=== PATIENT | male | born 1965 | race Caucasian/White ===

== ENCOUNTER → 2017-12-28 | Outpatient (CLI) | payer BC ==
[~2017-12-28] MED LIST: ASPIRIN ADULT L81 M1 PO; COLACE100 MG PO; LASIX20 MG PO; METOPROLOL SUCC25 M2 PO; PEPCID20 MG PO; PLAVIX75 M1 PO; POTASSIUM CHLO10 MEQ PO; ROXICODONE5 MG PO; TRILIPIX45 MG PO; ZOCOR40 MG PO
[2017-12-28 15:53] LABS: MEAN CORPUSCULAR HGB 31.3 pg (27.0-31.0); MEAN CORPUSCULAR HGB CONC 32.6 g/dl (33.0-37.0); MEAN PLATELET VOLUME 10.8 fl (9.6-12.3); RED BLOOD COUNT 4.79 10*6/uL (4.50-5.90)
[2017-12-28 16:24] LABS: ALBUMIN 4.3 gm/dl (3.1-4.5); ALKALINE PHOSPHATASE 44 U/L (45-117); BUN 23 mg/dl (7-24); CHLORIDE 112 mmol/L (98-107); CHOLESTEROL 192 mg/dL (<200); CREATININE 1.35 mg/dL (0.70-1.30); HDL CHOLESTEROL 65 mg/dl (40-60); LDL CHOLESTEROL 112 mg/dL (9-159); SGOT/AST 10 IU/L (3-35); SGPT/ALT 21 U/L (12-78); SODIUM 138 mmol/L (136-145); TOTAL PROTEIN 7.6 gm/dL (6.4-8.2); TRIGLYCERIDES 73 mg/dl (<150); VLDL CHOLESTEROL 15 mg/dL (6-40)
== END | disposition home or self-care (01) ==
LOC: LAB 14:46
PROVIDERS: Physician Assistant
DX: Z12.5 Encounter for screening for malignant neoplasm of prostate (principal); M16.12 Unilateral primary osteoarthritis, left hip; I10 Essential (primary) hypertension; I25.810 Atherosclerosis of coronary artery bypass graft(s) without angina pectoris; E78.2 Mixed hyperlipidemia; E66.09 Other obesity due to excess calories; Z68.35 Body mass index [BMI] 35.0-35.9, adult; K59.1 Functional diarrhea

== ENCOUNTER 2018-04-05 09:17 | Inpatient (IN) | payer BC ==
[~2018-04-05] VITALS: Ht 177.8 cm; Wt 112.7 kg
[2018-04-05] VITALS (9 sets, daily range): BP systolic 108–126; BP diastolic 58–82
--- NOTE | ~2018-04-05 | PR ---
[place], [place] PROGRESS NOTE NAME: TRACEY BANEGAS UNIT #: [id number] ROOM: 408 DOCTOR: LANG IGNACIO MD BIRTHDATE: [birth year] DOS: 04/07/2018 SUBJECTIVE: The patient is doing quite well from the cardiac point of view. Complains of still has some back pain and denies any chest discomfort, no shortness of breath. He has ruled out for myocardial infarction did a heart catheterization last year, she had one of the grafts was occluded. REVIEW OF SYSTEMS: A 6-8 systems reviewed except for the back pain. No chest pain, no shortness of breath. No syncope or no GI or issues. OBJECTIVE: GENERAL: The patient is alert, awake, oriented. HEENT: Unremarkable. NECK: Supple, no JVD. LUNGS: Clear. HEART: Sounds are regular. ABDOMEN: Soft, nontender. NEUROLOGIC: Stable. The patient was seen by Dr. Hunt yesterday. LABORATORY DATA: Sodium 140, potassium 3.6. Electrolytes are normal. Hemoglobin and hematocrit within normal limits 13.4 and 41. IMPRESSION: Atypical chest discomfort, known history of coronary artery, history of bypass surgery. RECOMMENDATIONS: Agree with the present management schedule a stress test as an outpatient. The patient is a prediabetic. Last heart catheterization 1 year ago and I will follow up. LANG IGNACIO MD CM:PNTRANS [id number] LANG IGNACIO MD 04/07/18 1048 interface
--- NOTE | ~2018-04-05 | EKG ---
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
--- NOTE | ~2018-04-05 | EKG ---
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
--- NOTE | ~2018-04-05 | CON ---
[place], [place] REPORT OF CONSULTATION NAME: TRACEY BANEGAS UNIT #: [id number] ROOM: 408 DOCTOR: BERTHA LOCKETT MD BIRTHDATE: [birth year] DOS: 04/06/[address] Thomas. HISTORY OF PRESENT ILLNESS: This is a 53-year-old -[place] gentleman with a history of hyperlipidemia, coronary artery disease, and 3-vessel CABG was done 2 years ago at [facility] following an acute myocardial infarction, which was attended to by Dr. Thomas. He has GERD. He tells me he does not have hypertension; however, the resident has hypertension as one of his diagnoses. He has mild obesity, but he has never had a stroke, heart failure, COPD, cancer, kidney problem. He never smoked, does not use alcoholic beverages. Both parents had coronary artery disease at a younger age. 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 He woke up around 4:30 in the morning with pain over the left anterior ribcage, mainly under the ribs that went laterally and down into the abdomen, it was quite severe and sharp. It eventually resolved. There was no accompanying nausea, any cramps in the belly, did not have any blood in the stools or diarrhea or constipation. He is very active and did not have any chest pain, jaw discomfort or arm discomfort. He has not had any palpitation, PND, orthopnea or swelling of the lower extremities. HOME MEDICATIONS: Include aspirin, clopidogrel, metoprolol 25 b.i.d., ranolazine 500 mg b.i.d., simvastatin 40 daily, topiramate 100 mg daily and Colace 100 mg daily. PHYSICAL EXAMINATION: GENERAL: Reveals a patient who is moderately overweight, but very pleasant, healthy looking, alert, oriented. There is no anemia, thyromegaly, finger clubbing. He is not cyanotic, not jaundiced. VITAL SIGNS: Pulse is 64 and regular, blood pressure 109/68. NECK: Normal JVP. AJR is negative. There is no carotid bruit. HEART: There is no cardiomegaly. No murmurs were present. EXTREMITIES: He has excellent pedal pulses and no edema in lower extremities. RESPIRATORY: Clear to percussion and auscultation. There was no chest wall tenderness. ABDOMEN: Bowel sounds are normal. No bruit was present. No organomegaly was present. Spleen was not palpable, and no guarding or rigidity was noted. LABORATORY DATA: An ECG showed normal sinus rhythm with right bundle branch block. Troponin I levels are normal. IMPRESSION: This patient had acute right upper quadrant pain and does not have any cardiac issues at this time. After GI workup, he can be discharged as far as heart is concerned. [place], [place] REPORT OF CONSULTATION NAME: TRACEY BANEGAS UNIT #: [id number] ROOM: 408 DOCTOR: BERTHA LOCKETT MD BIRTHDATE: [birth year] I thank you on behalf of Dr. Thomas for this consult. BERTHA LOCKETT MD CM:CONSTR:REPORT OF CONSULTATION 0816 04/25/18 1005 interface
--- NOTE | ~2018-04-05 | EKG ---
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
[2018-04-05] MEDS ORDERED: PAROXETINE HCL10 MG PO (09:26)
[2018-04-05] MEDS ORDERED: TOPIRAMATE100 M2 PO (09:26)
[2018-04-05 09:54] LABS: BASO % 0.1 % (0.0-1.0); EOS % 0.2 % (1.0-4.0); HEMATOCRIT 42.8 % (42.0-52.0); HEMOGLOBIN 14.3 g/dl (14.0-18.0); LYMPH # 0.8 10*3/uL (1.3-4.4); LYMPH % 9.5 % (27.0-41.0); MEAN CELL VOLUME 95.5 fl (80.0-94.0); MEAN CORPUSCULAR HGB 31.9 pg (27.0-31.0); MEAN CORPUSCULAR HGB CONC 33.4 g/dl (33.0-37.0); MONO # 0.4 10*3/uL (0.1-1.0); MONO % 4.5 % (3.0-9.0); NEUT # 6.8 10*3/uL (2.3-7.9); PLATELET COUNT AUTOMATED 232 10*3/uL (130-400); RED BLOOD COUNT 4.48 10*6/uL (4.50-5.90); RED CELL DISTRI WIDTH 12.9 % (0-14.5)
[2018-04-05 10:03] LABS: ACT PARTIAL THROMBO TIME 22.7 SECONDS (20.8-31.5)
[2018-04-05 10:10] LABS: ALBUMIN 3.7 gm/dl (3.1-4.5); ALKALINE PHOSPHATASE 39 U/L (45-117); BUN 21 mg/dl (7-24); CHLORIDE 108 mmol/L (98-107); CREATININE 1.35 mg/dL (0.70-1.30); LIPASE 114 U/L (73-393); POTASSIUM 3.7 mmol/L (3.5-5.1); SGOT/AST 14 IU/L (3-35); SGPT/ALT 22 U/L (12-78); SODIUM 136 mmol/L (136-145); TOTAL PROTEIN 6.9 gm/dL (6.4-8.2)
[2018-04-05 10:11] LABS: TROPONIN I < 0.015 ng/ml (<0.045)
[2018-04-05 10:38] LABS: BILIRUBIN NEGATIVE (NEGATIVE); BLOOD NEGATIVE (NEGATIVE); CLARITY CLOUDY (CLEAR); COLOR YELLOW (YELLOW); GLUCOSE NEGATIVE (NEGATIVE); KETONE NEGATIVE (NEGATIVE); LEUKO ESTERASE NEGATIVE (NEGATIVE); NITRITE NEGATIVE (NEGATIVE); PH 7.5 (5.0-9.0); UROBILINOGEN 0.2 E.U./dl (0.2-1.0)
[2018-04-05 10:56] LABS: BACTERIA 2+; EPITHELIAL CELLS 0-2; WBC 0-2 wbc/hpf (0-5)
--- NOTE | 2018-04-05 12:39 | NUR ---
PT DENIES ANY NAUSEA AT THIS TIME, ZOFRAN EFFECTIVE.
--- NOTE | 2018-04-05 14:00 | NUR ---
PT DENIES ANY PAIN AT THIS TIME MORPHINE EFFECTIVE.
--- NOTE | 2018-04-05 14:30 | NUR ---
A 53, admitted to , under the services of PADMA Liu DO with a diagnosis of CHEST PAIN. Chief complaint is LEFT UPPER ABD PAIN . Patient arrived via ambulatory from ER. Monitor applied. Initial assessment completed. Vital signs taken and recorded. PADMA LIU DO notified of admission to the unit. Orders received. See assessment for past medical history, medications and allergies. Patient and/or family oriented to unit. [facility]. Clothing/patient valuable form completed. RAUL DEE
--- NOTE | 2018-04-05 14:52 | NUR ---
Dr. Thomas was notified of consult.
--- NOTE | 2018-04-05 15:49 | NUR ---
NORCO GIVEN FOR C/O PAIN TO LEFT ABD OF 09/18. WILL CONT TO MONITOR. CALL LIGHT IN REACH.
--- NOTE | 2018-04-05 16:50 | NUR ---
PT STATES PAIN DECREASED TO LEFT ABD TO 3/10. WILL CONT TO MONITOR. CALL LIGHT IN REACH
--- NOTE | 2018-04-05 21:24 | NUR ---
PT GIVEN NORCO FOR C/O ABDOMINAL PAIN. WILL MONITOR FOR EFFECTIVENESS. CALL LIGHT IN REACH.
--- NOTE | 2018-04-05 21:45 | NUR ---
SPOKE WITH DR ARIZA REGARDING PT MED REC BEING UPDATED AND THAT MEDICATIONS NEED CONTINUED. PHYSICIAN STATES THAT HE WILL LOOK AT IT.
[2018-04-05] MEDS ORDERED: RANEXA500 M1 PO (22:03)
--- NOTE | 2018-04-05 22:29 | NUR ---
PT STATES THAT NORCO IS NOT EFFECTIVE AT THIS TIME FOR ABDOMINAL PAIN. MORPHINE GIVEN VIA IV. TOLERATED WELL BY PT. WILL MONITOR FOR EFFECTIVENESS. CALL LIGHT IN REACH.
--- NOTE | 2018-04-05 23:29 | NUR ---
PT STATES THAT MORPHINE IS EFFECTIVE AT THIS TIME AND HAS NO FURTHER COMPLAINTS.
[2018-04-06] VITALS: BP 109/68
--- NOTE | 2018-04-06 05:54 | NUR ---
CHECKED IN ON PATIENT AND HE STATES THAT HIS PAIN IS A 3 AT THIS TIME. PT OFFERED PAIN MEDICATION AND PT REFUSED AT THIS TIME. PT STATES HE WILL LET NURSE KNOW IF PAIN WORSENS. CALL LIGHT IN REACH.
[2018-04-06 06:05] LABS: BASO % 0.1 % (0.0-1.0); EOS # 0.1 10*3/uL (0.0-0.4); EOS % 1.1 % (1.0-4.0); HEMOGLOBIN 13.4 g/dl (14.0-18.0); LYMPH # 1.3 10*3/uL (1.3-4.4); LYMPH % 15.8 % (27.0-41.0); MEAN CELL VOLUME 97.2 fl (80.0-94.0); MEAN CORPUSCULAR HGB 31.8 pg (27.0-31.0); MEAN CORPUSCULAR HGB CONC 32.7 g/dl (33.0-37.0); MEAN PLATELET VOLUME 10.7 fl (9.6-12.3); MONO # 0.8 10*3/uL (0.1-1.0); MONO % 10.6 % (3.0-9.0); NEUT # 5.7 10*3/uL (2.3-7.9); PLATELET COUNT AUTOMATED 190 10*3/uL (130-400); RED BLOOD COUNT 4.22 10*6/uL (4.50-5.90); RED CELL DISTRI WIDTH 13.1 % (0-14.5); WHITE BLOOD COUNT 7.9 10*3/uL (4.8-10.8)
[2018-04-06 06:37] LABS: ALBUMIN 3.3 gm/dl (3.1-4.5); BUN 18 mg/dl (7-24); CHLORIDE 113 mmol/L (98-107); CREATININE 1.24 mg/dL (0.70-1.30); PHOSPHOROUS 2.5 mg/dL (2.5-4.9); POTASSIUM 3.6 mmol/L (3.5-5.1); SGOT/AST 20 IU/L (3-35); SGPT/ALT 19 U/L (12-78); SODIUM 140 mmol/L (136-145); TOTAL PROTEIN 6.4 gm/dL (6.4-8.2)
[2018-04-06 06:45] LABS: ALKALINE PHOSPHATASE 38 U/L (45-117)
--- NOTE | 2018-04-06 07:52 | NUR ---
IN BED AWAKE ALERT AND ORIENTED X3, C/O LEFT SIDE/BACK PAIN OF 3/10. WILL CONT TO MONITOR. CALL LIGHT IN REACH. SEE ASSESS.
[2018-04-06 08:00] VITALS: BP 108/50
--- NOTE | 2018-04-06 09:00 | NUR ---
[employer] Specialist in to talk to patient. Patient states lives at home with . There are few steps in the home. Physician: neelam garcia Pharmacy: [facility] Home health services: none Patient's level of ADLs: INDEPENDENT Patient has working utilities: all working DME: none Follow-up physician's appointment after d/c: will be made by hospitalist nurse director upon discharge Does patient want to access PORTAL?: no Discharge plan discussed with patient, patient states he lives at home with his , he stated that his is currently in a rehab facility due to a stroke, patient is independent in adls and ambulation, he works and drives, patient states he will be going back home and denies any home needs. GINGER SERNA
[2018-04-06 09:37] LABS: VITAMIN D, 25-HYDROXY 5.8 ng/mL (30-100)
[2018-04-06 12:00] VITALS: BP 106/65
--- NOTE | 2018-04-06 14:22 | NUR ---
PT C/O HEADACHE. STATES TYLENOL INEFF AND ASKED FOR HIS TOPAMAX. I TOLD HIM HE ALREADY HAD THAT THIS MORNING. THEN HE ASKED FOR A NORCO WHICH WAS GIVEN AT THIS TIME. WILL CONT TO MONITOR. CALL LIGHT IN REACH.
[2018-04-06 16:00] VITALS: BP 110/69
[2018-04-06 20:00] VITALS: BP 111/77
--- NOTE | 2018-04-06 22:12 | NUR ---
PT C/O HEADACHE AND BACK PAIN. PT STATES THAT NORCO DID NOT WORK EARLIER IN THE DAY FOR PAIN. MORPHINE GIVEN AT THIS TIME. WILL MONITOR FOR EFFECTIVENESS. CALL LIGHT IN REACH.
[2018-04-06] MEDS ORDERED: TOPAMAX100 M1 PO (22:26)
--- NOTE | 2018-04-06 23:12 | NUR ---
MORPHINE EFFECTIVE PER PT.
[2018-04-07] VITALS: BP 111/74
--- NOTE | 2018-04-07 04:00 | NUR ---
PT RESTING IN BED, RESPIRATIONS EASY AND UNLABORED. NO S/S OF DISTRESS NOTED. NO COMPLAINTS VOICED. ALL NEEDS MET. CALL LIGHT IN REACH.
[2018-04-07 06:51] LABS: BASO % 0.1 % (0.0-1.0); EOS # 0.1 10*3/uL (0.0-0.4); HEMATOCRIT 41.2 % (42.0-52.0); HEMOGLOBIN 13.7 g/dl (14.0-18.0); MEAN CELL VOLUME 96.7 fl (80.0-94.0); MEAN CORPUSCULAR HGB 32.2 pg (27.0-31.0); MEAN CORPUSCULAR HGB CONC 33.3 g/dl (33.0-37.0); MEAN PLATELET VOLUME 10.6 fl (9.6-12.3); MONO # 0.9 10*3/uL (0.1-1.0); MONO % 9.8 % (3.0-9.0); NEUT % 77.7 % (47.0-73.0); PLATELET COUNT AUTOMATED 192 10*3/uL (130-400); RED BLOOD COUNT 4.26 10*6/uL (4.50-5.90); RED CELL DISTRI WIDTH 13.2 % (0-14.5)
[2018-04-07 07:10] LABS: CHLORIDE 112 mmol/L (98-107); POTASSIUM 4.3 mmol/L (3.5-5.1); SODIUM 139 mmol/L (136-145)
[2018-04-07 07:13] LABS: BUN 20 mg/dl (7-24); CREATININE 1.42 mg/dL (0.70-1.30)
--- NOTE | 2018-04-07 09:00 | NUR ---
case management visits with patient, patient denies any home needs at this time
[2018-04-07] MEDS ORDERED: NORCO 5-325 TA1 EACH PO (09:52)
--- NOTE | 2018-04-07 11:30 | NUR ---
PT DISCHARGED HOME AT THIS TIME. [employer]PL[employer] AND [employer]ERRY MASTER DISCONTINUED.
== END 2018-04-07 11:30 | disposition home or self-care (01) | DRG 392 ==
LOC: ED 09:17 → EDHOLD 12:21 → 4E 12:21
PROVIDERS: Internal Medicine; Nurse Practitioner Family; Student in an Organized Health Care Education/Training Program; ADMIT Internal Medicine
DX: R10.11 Right upper quadrant pain (principal); I50.32 Chronic diastolic (congestive) heart failure; I25.810 Atherosclerosis of coronary artery bypass graft(s) without angina pectoris; I13.0 Hypertensive heart and chronic kidney disease with heart failure and stage 1 through stage 4 chronic kidney disease, or unspecified chronic kidney disease; R00.1 Bradycardia, unspecified; N18.3 Chronic kidney disease, stage 3 (moderate); K76.0 Fatty (change of) liver, not elsewhere classified; R07.82 Intercostal pain; E87.8 Other disorders of electrolyte and fluid balance, not elsewhere classified; E83.41 Hypermagnesemia; R73.9 Hyperglycemia, unspecified; E78.5 Hyperlipidemia, unspecified; K21.9 Gastro-esophageal reflux disease without esophagitis; R73.03 Prediabetes; E66.09 Other obesity due to excess calories; Z98.52 Vasectomy status; Z95.1 Presence of aortocoronary bypass graft; Z82.49 Family history of ischemic heart disease and other diseases of the circulatory system; Z82.5 Family history of asthma and other chronic lower respiratory diseases; I25.2 Old myocardial infarction; Z79.82 Long term (current) use of aspirin; Z79.899 Other long term (current) drug therapy; Z79.02 Long term (current) use of antithrombotics/antiplatelets; Z68.35 Body mass index [BMI] 35.0-35.9, adult

== ENCOUNTER → 2018-04-25 | Outpatient (CLI) | payer BC ==
[~2018-04-25] MED LIST changes: +NORCO 5-325 TA1 EACH PO; +PAROXETINE HCL10 MG PO; +RANEXA500 M1 PO; +TOPAMAX100 M1 PO; +TOPIRAMATE100 M2 PO
--- NOTE | ~2018-04-25 | ST ---
[place], [place] EXERCISE STRESS TEST REPORT NAME: TRACEY BANEGAS UNIT #: [id number] ROOM: DOCTOR: LANG IGNACIO MD BIRTHDATE: [birth year] DOS: 04/25/2018 LEXISCAN PORTION OF LEXISCAN CARDIOLITE A 0.4 mg Lexiscan, duration of 10 seconds. Lexiscan, no new EKG changes. The patient had no chest pain. Blood pressure and heart rate response was normal. Underlying right bundle branch block. Isolated PVCs. Nuclear images will be reported separately. LANG IGNACIO MD CM:STRESS:EXERCISE STRESS TEST REPORT [id number] [id number] LANG IGNACIO MD
--- NOTE | 2018-04-25 07:00 | NUR ---
INFORMED CONSENT OBTAINED FOR LEXISCAN NUCLEAR STRESS TEST WITH DR. IGNACIO. RESTING EKG RBBB WITH A RESTING HR OF 67 AND BP OF 112/80. LUNGS CLEAR WITH SPO2 OF 96% ON ROOM AIR. PT COMPLETED A 1:00 LEXISCAN PROTOCOL RECEIVING LEXISCAN 0.4 MG IV OVER 10 SECONDS. HAD NO CHEST PAIN. EKG NONDIAGNOSTIC WITH RBBB PATTERN. HAD C/O NAUSEA THAT SUBSIDED IN RECOVERY. HAD A PEAK HR OF 81 WITH BP OF 98/76. LAST RECOVERY HR OF 76 WITH BP OF 114/80. AWAITING SCANNING IN STABLE CONDITION.
== END | disposition home or self-care (01) ==
LOC: CARD 02:13
DX: I10 Essential (primary) hypertension (principal); R07.9 Chest pain, unspecified; I25.10 Atherosclerotic heart disease of native coronary artery without angina pectoris; H93.25 Central auditory processing disorder

== ENCOUNTER 2020-01-09 19:21 | Observation (INO) | payer BC ==
[~2020-01-09] VITALS: Ht 175.2 cm; Wt 107.5 kg
[2020-01-09 19:32] VITALS: BP 131/78
[2020-01-09] MEDS ORDERED: Lopressor25 MG PO (19:45)
[2020-01-09 20:22] LABS: BASO % 0.2 % (0.0-1.0); EOS # 0.1 10*3/uL (0.0-0.4); EOS % 1.3 % (1.0-4.0); HEMATOCRIT 48.3 % (42.0-52.0); LYMPH # 1.1 10*3/uL (1.3-4.4); LYMPH % 19.8 % (27.0-41.0); MEAN CORPUSCULAR HGB 31.8 pg (27.0-31.0); MEAN CORPUSCULAR HGB CONC 32.5 g/dl (33.0-37.0); MEAN PLATELET VOLUME 9.7 fl (9.6-12.3); MONO # 0.4 10*3/uL (0.1-1.0); MONO % 7.9 % (3.0-9.0); NEUT # 3.8 10*3/uL (2.3-7.9); NEUT % 70.4 % (47.0-73.0); PLATELET COUNT AUTOMATED 230 10*3/uL (130-400); RED BLOOD COUNT 4.93 10*6/uL (4.50-5.90); RED CELL DISTRI WIDTH 12.7 % (0-14.5); WHITE BLOOD COUNT 5.4 10*3/uL (4.8-10.8)
[2020-01-09 20:34] VITALS: BP 114/78
[2020-01-09 20:40] LABS: ALBUMIN 3.9 gm/dl (3.1-4.5); ALKALINE PHOSPHATASE 50 U/L (45-117); BUN 20 mg/dl (7-24); CHLORIDE 109 mmol/L (98-107); CREATININE 1.48 mg/dL (0.70-1.30); POTASSIUM 3.3 mmol/L (3.5-5.1); SGOT/AST 11 IU/L (3-35); SGPT/ALT 21 U/L (12-78); SODIUM 137 mmol/L (136-145); TOTAL PROTEIN 7.4 gm/dL (6.4-8.2)
[2020-01-09 20:45] LABS: TROPONIN I < 0.015 ng/ml (<0.045)
[2020-01-09 21:38] VITALS: BP 107/74
[2020-01-09 22:40] VITALS: BP 118/71
--- NOTE | 2020-01-09 22:40 | NUR ---
A 54, admitted to , under the services of STAN Stokes DO with a diagnosis of ATYPICAL CHEST PAIN. Chief complaint is COUGH, SOB. Patient arrived via bed from ER. Monitor applied. Initial assessment completed. Vital signs taken and recorded. STAN STOKES DO notified of admission to the unit. Orders received. See assessment for past medical history, medications and allergies. Patient and/or family oriented to unit. [facility] visitation policy reviewed. Clothing/patient valuable form completed. BARBARA PORTER
[2020-01-09] MEDS ORDERED: ZOCOR40 MG PO (23:27)
--- NOTE | 2020-01-09 23:28 | NUR ---
DR. DRAPER NOTIFIED OF COMPLETE HOME MEDICATIONS
--- NOTE | 2020-01-10 | NUR ---
IN TO SEE PT. PT VERBALIZES NO COMPLAINTS, CALL LIGHT IN REACH
--- NOTE | 2020-01-10 01:52 | NUR ---
ZOFRAN AND TYLENOL GIVEN PER ORDER FOR COMPLAINTS OF NAUSEA AND HEADACHE. WILL MONITOR
--- NOTE | 2020-01-10 02:50 | NUR ---
PRN MEDICATIONS APPEAR EFFECTIVE, PT ASLEEP
--- NOTE | 2020-01-10 05:31 | NUR ---
PT SLEEPING AT THIS TIME. NO S/S OF DISTRESS NOTED. CALL LIGHT IN REACH
[2020-01-10 06:35] LABS: BASO % 0.2 % (0.0-1.0); EOS # 0.1 10*3/uL (0.0-0.4); HEMATOCRIT 44.8 % (42.0-52.0); LYMPH # 1.4 10*3/uL (1.3-4.4); MEAN CELL VOLUME 99.1 fl (80.0-94.0); MEAN CORPUSCULAR HGB 31.2 pg (27.0-31.0); MEAN CORPUSCULAR HGB CONC 31.5 g/dl (33.0-37.0); MEAN PLATELET VOLUME 10.1 fl (9.6-12.3); MONO # 0.5 10*3/uL (0.1-1.0); MONO % 9.9 % (3.0-9.0); NEUT # 3.3 10*3/uL (2.3-7.9); PLATELET COUNT AUTOMATED 202 10*3/uL (130-400); RED BLOOD COUNT 4.52 10*6/uL (4.50-5.90); RED CELL DISTRI WIDTH 12.7 % (0-14.5); WHITE BLOOD COUNT 5.4 10*3/uL (4.8-10.8)
[2020-01-10 06:51] LABS: ALBUMIN 3.3 gm/dl (3.1-4.5); BUN 22 mg/dl (7-24); CHLORIDE 112 mmol/L (98-107); CHOLESTEROL 293 mg/dL (<200); CREATININE 1.27 mg/dL (0.70-1.30); SGOT/AST 9 IU/L (3-35); SGPT/ALT 19 U/L (12-78); SODIUM 140 mmol/L (136-145); TRIGLYCERIDES 249 mg/dl (<150); VLDL CHOLESTEROL 50 mg/dL (6-40)
[2020-01-10 06:58] LABS: ALKALINE PHOSPHATASE 43 U/L (45-117); HDL CHOLESTEROL 45 mg/dl (40-60); LDL CHOLESTEROL 198 mg/dL (9-159); TOTAL PROTEIN 6.5 gm/dL (6.4-8.2)
[2020-01-10 07:39] LABS: VITAMIN D, 25-HYDROXY 8.9 ng/mL (30-100)
[2020-01-10 08:00] VITALS: BP 116/78
--- NOTE | 2020-01-10 09:00 | NUR ---
[employer] Specialist talks with patient. Patient states lives at home with . There are no steps in the home. Physician: neelam garcia Pharmacy: [facility] [place] health services: none Patient's level of ADLs: INDEPENDENT Patient has working utilities: all working DME: none Follow-up physician's appointment after d/c: will be made by hospitalist nurse director upon discharge Does patient want to access PORTAL?: no Discharge plan discussed with patient, he lives at home, is independent in adls and ambulation, works, drives. he will return home when discharged and denies any home needs, case management will follow. GINGER SERNA
--- NOTE | 2020-01-10 09:30 | NUR ---
PER DR CÁRDENAS, HOLD PATIENT'S METOPROLOL FOR LOW HEART RATE IN THE 50'S.
[2020-01-10 12:00] VITALS: BP 108/78
[2020-01-10] MEDS ORDERED: VITAMIN D350 MCG PO (12:22)
--- NOTE | 2020-01-10 13:34 | NUR ---
PATIENT HAS LEFT THE FLOOR.
--- NOTE | 2020-01-10 13:34 | NUR ---
Discharge instructions reviewed with patient/family. Patient receptive and verbalizes understanding. Follow-up care arranged. Written instructions given to patient/family. AYAKA DONALDSON
== END 2020-01-10 13:34 | disposition home or self-care (01) ==
LOC: ED 19:21 → EDHOLD 21:23 → 4E 21:40
PROVIDERS: Internal Medicine; Nurse Practitioner Family; ADMIT Family Medicine; ATTEND Family Medicine
DX: R07.89 Other chest pain (principal); I13.0 Hypertensive heart and chronic kidney disease with heart failure and stage 1 through stage 4 chronic kidney disease, or unspecified chronic kidney disease; I50.9 Heart failure, unspecified; N18.9 Chronic kidney disease, unspecified; G43.909 Migraine, unspecified, not intractable, without status migrainosus; F32.9 Major depressive disorder, single episode, unspecified; K21.9 Gastro-esophageal reflux disease without esophagitis; E87.6 Hypokalemia; E78.5 Hyperlipidemia, unspecified; E87.8 Other disorders of electrolyte and fluid balance, not elsewhere classified; Z95.1 Presence of aortocoronary bypass graft; Z20.828 Contact with and (suspected) exposure to other viral communicable diseases

== ENCOUNTER 2020-01-15 20:24 | Emergency (ER) | payer BC ==
[~2020-01-15] VITALS: Ht 175.2 cm; Wt 107.5 kg
[~2020-01-15 20:24] MED LIST changes: +Lopressor25 MG PO; +VITAMIN D350 MCG PO
[2020-01-15 20:52] LABS: BASO % 0.2 % (0.0-1.0); EOS # 0.1 10*3/uL (0.0-0.4); HEMATOCRIT 45.3 % (42.0-52.0); LYMPH # 1.5 10*3/uL (1.3-4.4); LYMPH % 24.8 % (27.0-41.0); MEAN CELL VOLUME 97.6 fl (80.0-94.0); MEAN CORPUSCULAR HGB 32.1 pg (27.0-31.0); MEAN CORPUSCULAR HGB CONC 32.9 g/dl (33.0-37.0); MEAN PLATELET VOLUME 9.9 fl (9.6-12.3); MONO # 0.7 10*3/uL (0.1-1.0); MONO % 10.9 % (3.0-9.0); NEUT # 3.7 10*3/uL (2.3-7.9); NEUT % 61.3 % (47.0-73.0); PLATELET COUNT AUTOMATED 215 10*3/uL (130-400); RED BLOOD COUNT 4.64 10*6/uL (4.50-5.90); RED CELL DISTRI WIDTH 12.8 % (0-14.5)
[2020-01-15 21:08] LABS: ALBUMIN 3.6 gm/dl (3.1-4.5); ALKALINE PHOSPHATASE 52 U/L (45-117); BUN 25 mg/dl (7-24); CHLORIDE 112 mmol/L (98-107); POTASSIUM 3.4 mmol/L (3.5-5.1); SGOT/AST 8 IU/L (3-35); SGPT/ALT 21 U/L (12-78); SODIUM 141 mmol/L (136-145)
[2020-01-15 21:09] LABS: TROPONIN I < 0.015 ng/ml (<0.045)
[2020-01-15 21:10] LABS: ACT PARTIAL THROMBO TIME 25.9 SECONDS (20.0-32.1); INTERNATIONAL NORM RATIO 0.9 (2.0-3.5)
[2020-01-16 00:55] VITALS: BP 112/74
[2020-01-16] MEDS ORDERED: TRAMADOL HCL50 MG PO (02:10)
== END 2020-01-16 03:05 | disposition home or self-care (01) ==
LOC: ED 20:24
PROVIDERS: Emergency Medicine
DX: R07.89 Other chest pain (principal); I25.2 Old myocardial infarction; E78.00 Pure hypercholesterolemia, unspecified; Z79.82 Long term (current) use of aspirin; Z79.899 Other long term (current) drug therapy

== ENCOUNTER → 2020-01-25 | Outpatient (CLI) | payer BC ==
[~2020-01-25] MED LIST changes: +TRAMADOL HCL50 MG PO
== END | disposition home or self-care (01) ==
LOC: US 12:30
PROVIDERS: ATTEND Physician Assistant
DX: R22.1 Localized swelling, mass and lump, neck (principal)

== ENCOUNTER → 2020-04-02 | Outpatient (CLI) | payer BC ==
[~2020-04-02] MED LIST changes: +PAXIL10 MG PO
== END | disposition home or self-care (01) ==
LOC: CARD 08:00
PROVIDERS: ATTEND Physician Assistant
DX: R42 Dizziness and giddiness (principal); R00.1 Bradycardia, unspecified

== ENCOUNTER → 2020-04-22 | Outpatient (CLI) | payer BC ==
--- NOTE | 2020-04-22 07:00 | NUR ---
INFORMED CONSENT OBTAINED FOR LEXISCAN STRESS TEST WITH . RESTING EKG RBBB WITH A RESTING HR OF 69 WITH BP OF 108/64. LUNGS CLEAR WITH SPO2 OF 95% ON ROOM AIR. PT COMPLETED A 1:00 LEXISCAN PROTOCOL RECEIVING LEXISCAN 0.4 MG IV OVER 10 SECONDS. HAD NO CHEST PAIN AND NONDIAGNOSTIC ST WITH RBBB. HAD C/O NAUSEA THAT SUBSIDED IN RECOVERY. HAD A PEAK HR OF 80 WITH BP OF 110/72. LAST RECOVERY HR OF 77 WITH BP OF 106/72. AWAITING SCANNING IN STABLE CONDITION.
== END | disposition home or self-care (01) ==
LOC: CARD 00:17
PROVIDERS: ATTEND Internal Medicine Cardiovascular Disease
DX: I49.9 Cardiac arrhythmia, unspecified (principal); R94.31 Abnormal electrocardiogram [ECG] [EKG]

== ENCOUNTER → 2020-05-26 | Outpatient (CLI) | payer BC ==
[~2020-05-26] VITALS: Ht 177.8 cm; Wt 108.9 kg
== END | disposition home or self-care (01) ==
LOC: COVID19 14:03
PROVIDERS: ATTEND Surgery
DX: Z01.812 Encounter for preprocedural laboratory examination (principal); Z20.822 Contact with and (suspected) exposure to COVID-19

== ENCOUNTER → 2020-05-30 | Day surgery (SDC) | payer BC ==
[2020-05-30 07:48] VITALS: BP 128/72
[2020-05-30 08:16] VITALS: BP 105/71
[2020-05-30 08:30] VITALS: BP 103/69
[2020-05-30 08:45] VITALS: BP 111/79
== END ==
LOC: SDC 05-26 13:15
PROVIDERS: ATTEND Surgery
DX: Z12.11 Encounter for screening for malignant neoplasm of colon (principal); K57.30 Diverticulosis of large intestine without perforation or abscess without bleeding; I25.10 Atherosclerotic heart disease of native coronary artery without angina pectoris; I10 Essential (primary) hypertension; E78.5 Hyperlipidemia, unspecified; G43.909 Migraine, unspecified, not intractable, without status migrainosus; F41.9 Anxiety disorder, unspecified; F32.9 Major depressive disorder, single episode, unspecified; Z79.899 Other long term (current) drug therapy

== ENCOUNTER 2020-07-14 21:05 | Emergency (ER) | payer BC ==
[~2020-07-14] VITALS: Ht 177.8 cm; Wt 108.9 kg
[2020-07-14 21:32] VITALS: BP 140/89
== END 2020-07-14 22:57 | disposition home or self-care (01) ==
LOC: ED 21:05
DX: B34.9 Viral infection, unspecified (principal); Z20.822 Contact with and (suspected) exposure to COVID-19; R19.7 Diarrhea, unspecified; Z98.61 Coronary angioplasty status; Z79.899 Other long term (current) drug therapy; Z98.890 Other specified postprocedural states

== ENCOUNTER → 2020-12-26 | Outpatient (CLI) | payer BC | END | disposition home or self-care (01) | LOC: US 16:20 | PROVIDERS: ATTEND Physician Assistant | DX: M79.662 Pain in left lower leg (principal); U07.1 COVID-19 ==

== ENCOUNTER 2022-09-05 11:57 | Emergency (ER) | payer OTHER ==
[~2022-09-05] VITALS: Ht 177.8 cm; Wt 119.7 kg
[2022-09-05 12:13] VITALS: BP 142/95
[2022-09-05] MEDS ORDERED: LOPRESSOR25 MG PO (12:15)
[2022-09-05] MEDS ORDERED: IMDUR SA30 MG PO (12:16)
[2022-09-05] MEDS ORDERED: ASPIRIN81 M1 PO (12:17)
[2022-09-05 12:46] LABS: BASO % 0.2 % (0.0-1.0); EOS # 0.2 10*3/uL (0.0-0.4); EOS % 1.7 % (1.0-4.0); HEMATOCRIT 46.2 % (42.0-52.0); LYMPH # 1.1 10*3/uL (1.3-4.4); LYMPH % 11.9 % (27.0-41.0); MEAN CELL VOLUME 95.5 fl (80.0-94.0); MEAN CORPUSCULAR HGB 31.6 pg (27.0-31.0); MEAN CORPUSCULAR HGB CONC 33.1 g/dl (33.0-37.0); MEAN PLATELET VOLUME 9.5 fl (9.6-12.3); MONO # 0.7 10*3/uL (0.1-1.0); MONO % 8.3 % (3.0-9.0); NEUT # 6.9 10*3/uL (2.3-7.9); NEUT % 77.7 % (47.0-73.0); PLATELET COUNT AUTOMATED 249 10*3/uL (130-400); RED BLOOD COUNT 4.84 10*6/uL (4.50-5.90); RED CELL DISTRI WIDTH 12.3 % (0-14.5); WHITE BLOOD COUNT 8.9 10*3/uL (4.8-10.8)
[2022-09-05 13:09] LABS: ALKALINE PHOSPHATASE 67 U/L (46-116); BUN 12 mg/dl (9-23); CHLORIDE 102 mmol/L (98-107); SGPT/ALT 22 U/L (10-49); TOTAL PROTEIN 7.2 gm/dL (6.0-8.0)
[2022-09-05] MEDS ORDERED: BROMFED DM COU118 M2 PO (13:59)
[2022-09-05] MEDS ORDERED: PROVENTIL HFA6.7 GM INH (13:59)
[2022-09-05] MEDS ORDERED: MEDROL DOSEPAK4 MG PO (13:59)
== END 2022-09-05 14:13 | disposition home or self-care (01) ==
LOC: ED 11:57
PROVIDERS: Nurse Practitioner Family
DX: J06.9 Acute upper respiratory infection, unspecified (principal); I25.10 Atherosclerotic heart disease of native coronary artery without angina pectoris; I11.0 Hypertensive heart disease with heart failure; I25.2 Old myocardial infarction; F32.A Depression, unspecified; E78.00 Pure hypercholesterolemia, unspecified; Z98.890 Other specified postprocedural states; Z20.822 Contact with and (suspected) exposure to COVID-19

== ENCOUNTER → 2022-09-28 | Outpatient (CLI) | payer OTHER ==
[~2022-09-28] MED LIST changes: +ASPIRIN81 M1 PO; +BROMFED DM COU118 M2 PO; +IMDUR SA30 MG PO; +LOPRESSOR25 MG PO; +MEDROL DOSEPAK4 MG PO; +PROVENTIL HFA6.7 GM INH
== END | disposition home or self-care (01) ==
LOC: CT 01:08
PROVIDERS: ATTEND Physician Assistant
DX: I25.810 Atherosclerosis of coronary artery bypass graft(s) without angina pectoris (principal); I77.810 Thoracic aortic ectasia; J98.11 Atelectasis; I10 Essential (primary) hypertension; J92.9 Pleural plaque without asbestos

== ENCOUNTER → 2022-10-25 | Outpatient (CLI) | payer OTHER | END | disposition home or self-care (01) | LOC: ORTHO 01:28 | PROVIDERS: ATTEND Orthopaedic Surgery | DX: M19.011 Primary osteoarthritis, right shoulder (principal) ==

== ENCOUNTER 2022-12-19 12:51 | Emergency (ER) | payer OTHER ==
[~2022-12-19] VITALS: Ht 177.8 cm; Wt 120.2 kg
[2022-12-19 13:06] VITALS: BP 159/90
== END 2022-12-19 14:56 | disposition home or self-care (01) ==
LOC: ED 12:51
DX: U07.1 COVID-19 (principal); I25.2 Old myocardial infarction; I10 Essential (primary) hypertension; F32.A Depression, unspecified; E78.00 Pure hypercholesterolemia, unspecified; Z98.890 Other specified postprocedural states; Z95.5 Presence of coronary angioplasty implant and graft

== ENCOUNTER → 2023-04-19 | Outpatient (CLI) | payer BC ==
[2023-04-19 10:58] LABS: HEMATOCRIT 46.5 % (42.0-52.0); MEAN CELL VOLUME 96.7 fl (80.0-94.0); MEAN CORPUSCULAR HGB 31.2 pg (27.0-31.0); MEAN CORPUSCULAR HGB CONC 32.3 g/dl (33.0-37.0); RED BLOOD COUNT 4.81 10*6/uL (4.50-5.90); WHITE BLOOD COUNT 4.9 10*3/uL (4.8-10.8)
[2023-04-19 11:41] LABS: ALKALINE PHOSPHATASE 53 U/L (46-116); BUN 10 mg/dl (9-23); CHLORIDE 109 mmol/L (98-107); CHOLESTEROL 264 mg/dL (<200); LDL CHOLESTEROL 180 mg/dL (9-159); POTASSIUM 4.2 mmol/L (3.4-5.1); SGPT/ALT 23 U/L (5-49); TOTAL PROTEIN 6.6 gm/dL (6.0-8.0); TRIGLYCERIDES 174 mg/dl (<150)
== END | disposition home or self-care (01) ==
LOC: US 09:30 → LAB 09:49
PROVIDERS: ATTEND Physician Assistant
DX: Z12.5 Encounter for screening for malignant neoplasm of prostate (principal); M79.605 Pain in left leg; I10 Essential (primary) hypertension; I25.810 Atherosclerosis of coronary artery bypass graft(s) without angina pectoris; R60.0 Localized edema

== ENCOUNTER → 2023-05-25 | Outpatient (CLI) | payer BC | END | disposition home or self-care (01) | LOC: US 08:30 | PROVIDERS: ATTEND Physician Assistant | DX: M79.605 Pain in left leg (principal) ==

== ENCOUNTER → 2023-07-05 | Outpatient (CLI) | payer BC ==
[~2023-07-05] MED LIST changes: +DAILY VALUE1 EACH PO; +REPATHA PU420 MG/3.5 SQ; +ROSUVASTATIN CA40 MG PO; +Regadenoson 0.4 MG/5 ML SYR IV ONE; +Technetium Tc 99M Tetrofosmi 0.23 MG KIT IJ SCH
== END | disposition home or self-care (01) ==
LOC: CARD 00:37
PROVIDERS: ATTEND Internal Medicine Cardiovascular Disease
DX: I45.10 Unspecified right bundle-branch block (principal); R94.31 Abnormal electrocardiogram [ECG] [EKG]; I20.89 Other forms of angina pectoris

== ENCOUNTER → 2023-11-07 | Outpatient (CLI) | payer BC ==
[~2023-11-07] MED LIST changes: -Regadenoson 0.4 MG/5 ML SYR IV ONE; -Technetium Tc 99M Tetrofosmi 0.23 MG KIT IJ SCH
== END | disposition home or self-care (01) ==
LOC: ORTHO 01:53
PROVIDERS: ATTEND Orthopaedic Surgery
DX: M19.032 Primary osteoarthritis, left wrist (principal)

== ENCOUNTER → 2023-11-28 | Outpatient (CLI) | payer BC | END | disposition home or self-care (01) | LOC: ORTHO 00:27 | PROVIDERS: ATTEND Orthopaedic Surgery | DX: M75.42 Impingement syndrome of left shoulder (principal) ==

== ENCOUNTER → 2024-06-07 | Outpatient (CLI) | payer OTHER ==
[~2024-06-07] MED LIST changes: +IOHEXOL 350 MG/ML 100 ML VIAL IV ONE; +Lactated Ringer's Solution 1,000 ML IV ONE; +SODIUM CHLORIDE 0.9% 100 ML BAG IV ONE; +SODIUM CHLORIDE 0.9% 100 ML IV ONE
== END | disposition home or self-care (01) ==
LOC: CT 08:32
PROVIDERS: ATTEND Internal Medicine Cardiovascular Disease
DX: I77.810 Thoracic aortic ectasia (principal); Z95.0 Presence of cardiac pacemaker